=== PATIENT | female | born 1990 | race Two or more races ===

== ENCOUNTER 2023-05-24 13:56 | Emergency (ER) | payer OTHER ==
[2023-05-24 14:26] VITALS: BP 119/72; O2SAT 99
--- NOTE | 2023-05-24 14:58 | ED Physician Documentation ---
PD HPI HEENT - Stated complaint Stated Complaint: LT SIDE TOOTH PX,CAZARES - Chief complaint Chief Complaint: Heent - History obtained from History obtained from: Patient - Additional information Additional information: Patient is a 33-year-old female with no significant past medical history presenting for evaluation of left lower dental pain for the past 2 days. Patient reports having had a prior root canal in the neck Placed onto the tooth years ago and pain starting 2 days ago. She did take a dose of Excedrin which does help with the pain. She tried to get into her dentist but was unable to so they directed her to the emergency department. Reports feeling feverish this morning. No trouble breathing or swallowing. Review of Systems Throat: reports: Dental pain / toothache PD PAST MEDICAL HISTORY - Past Medical History Past Medical History: No - Past Surgical History Past Surgical History: No - Present Medications Home Medications: Ambulatory Orders Medication Instructions Recorded Confirmed Amox/Clav 875/125 [Augmentin] 1 each PO Q12H #14 tablet 05/24/23 - Allergies Allergies/Adverse Reactions: Allergies Allergy/AdvReac Type Severity Reaction Status Date / Time sulfamethoxazole Allergy Unknown Verified 05/24/23 14:23 [From Bactrim] trimethoprim [From Bactrim] Allergy Unknown Verified 05/24/23 14:23 - Social History Does the pt smoke?: Yes Smoking Status: Current every day smoker Does the pt drink ETOH?: No Does the pt have substance abuse?: No PD ED PE NORMAL - General General: Alert and oriented X 3, No acute distress, Well developed/nourished - HEENT HEENT: Atraumatic, Moist mucous membranes, Pharynx benign, Other (No signs of oral swelling, abscess, no trismus) PD ED PE EXPANDED - HEENT HEENT Visual: 1 - tenderness Results - Vitals Vitals: Vital Signs - 24 hr 05/24/23 14:20 Temperature 36.7 C Heart Rate 67 Respiratory 15 Rate Blood Pressure 119/72 O2 Saturation 99 PD Medical Decision Making - ED course ED course: Patient with dental pain for 2 days. No signs of abscess, deep space infection. No trismus or signs of airway compromise. Patient to be started on Augmentin and understands need for follow-up with dentist. Patient advised on concerning symptoms to return for. Departure - Departure Disposition: 01 Home, Self Care Clinical Impression: Pain, dental Condition: Stable Instructions: ED Tooth Pain Prescriptions: Amox/Clav 875/125 [Augmentin] 1 each PO Q12H #14 tablet Comments: I have sent a prescription for an antibiotic to [facility] in [place].Continue w ith an anti-inflammatory such as ibuprofen or acetaminophen for pain. It is very important that you follow-up with a dentist. When it comes to dental problems like yours, the emergency department can only offer a short-term solution to your long-term problem. A couple of low cost options for dental care include: [facility] in [place], calls [phone] for an appointment Or [facility] in [place], call [phone] for an appointment. Forms: PCP List Discharge Date/Time: 05/24/23 15:22
== END 2023-05-24 15:22 | disposition home or self-care (01) ==
LOC: ED 13:56
DX: K08.89 Other specified disorders of teeth and supporting structures (principal); F17.200 Nicotine dependence, unspecified, uncomplicated
CPT/HCPCS: 99282; 99283